=== PATIENT | male | born 1990 | race Caucasian/White ===

== ENCOUNTER 2020-08-15 11:36 | Emergency (ER) | payer OTHER ==
[~2020-08-15] VITALS: Ht 175.3 cm; Wt 71.9 kg
[2020-08-15] MEDS ORDERED: NS 1,000 ML IV ONE (12:15)
[2020-08-15] MEDS ORDERED: ACETAMINOPHEN 500 MG TAB PO ONE (12:15)
[2020-08-15] MEDS ORDERED: ONDANSETRON 4MG/2ML VIAL IV ONE (12:15)
[2020-08-15 12:23] LABS: BASO % 0.2 % (0.0-1.0); EOS % 0.3 % (0.0-3.0); HEMATOCRIT 47.3 % (42.0-52.0); HEMOGLOBIN 16.4 g/dl (13.5-17.5); LYMPH # 0.6 10^3/uL (1.5-5.0); LYMPH % 4.2 % (24.0-44.0); MEAN CORPUSCULAR HEMOGLOBIN 27.9 pg (27.0-33.0); MEAN CORPUSCULAR HGB CONC 34.7 g/dl (32.0-36.5); MEAN CORPUSCULAR VOLUME 80.6 fl (80.0-96.0); MONO # 1.1 10^3/uL (0.0-0.8); MONO % 7.8 % (0.0-5.0); NEUTROPHILS # 11.7 10^3/uL (1.5-8.5); NEUTROPHILS % 87.1 % (36.0-66.0); PLATELET COUNT, AUTOMATED 214 10^3/uL (150-450); RED BLOOD COUNT 5.87 10^6/uL (4.30-6.10); WHITE BLOOD COUNT 13.4 10^3/uL (4.0-10.0)
[2020-08-15] MEDS ORDERED: ROPI2TAB24 PO (12:23)
[2020-08-15 12:30] LABS: BILIRUBIN, URINE MANUAL OBSCURED (NEGATIVE); GLUCOSE, URINE (UA) MANUAL NEGATIVE (NEGATIVE); KETONE, URINE MANUAL OBSCURED mg/dL (NEGATIVE); UROBILINOGEN, URINE MANUAL OBSCURED mg/dl (NORMAL)
[2020-08-15 12:54] LABS: BACTERIA, URINE MOD AMOUNT; HYALINE CAST, URINE NONE SEEN /lpf (0-1); MUCUS, URINE SMALL AMOUNT (NEGATIVE); RBC, URINE TNTC /hpf (0-3); RENAL EPITHELIAL CELLS, URINE SMALL AMOUNT /hpf; SQUAMOUS EPITHELIAL CELL URINE SMALL AMOUNT /hpf (SMALL AMT)
[2020-08-15 12:56] LABS: ALBUMIN 4.6 GM/DL (3.2-5.2); ALT/SGPT 31 U/L (12-78); BILIRUBIN,DIRECT 0.3 MG/DL (0.0-0.2); C REACTIVE PROTEIN QUANTITATIV < 0.30 MG/DL (0.00-0.30); LIPASE 45 U/L (73-393); TOTAL PROTEIN 7.8 GM/DL (6.4-8.2)
[2020-08-15 13:00] LABS: ERYTHROCYTE SEDIMENTATION RATE 1 mm/hr (0-15)
--- NOTE | 2020-08-15 13:47 | REP ---
INDICATION: LLQ/L groin pain, hematuria, r/o stone. COMPARISON: None TECHNIQUE: Noncontrast enhanced stone protocol FINDINGS: The lung bases are clear. Limited evaluation of the solid intra-organs and gallbladder show no gross abnormalities. Limited evaluation of the pancreas, adrenal glands, and right kidney show no abnormalities. There is mild left-sided hydronephrosis and hydroureter with mild periureteral edema. In the distal left ureter there is a 6 mm size calculus responsible for the aforementioned findings. There is no free fluid or free air. The bowel loops and the mesenteries are within normal limits. Bone window technique throughout the exam shows the osseous structures to be within normal limits. IMPRESSION: Distal left ureterolith with resultant findings as described above. <Electronically signed by Fabien Martin > 08/15/20 [id number]
--- NOTE | 2020-08-15 13:50 | REP ---
INDICATION: L testicular pain. COMPARISON: None FINDINGS: The right testicle measures 4 x 1.6 x 2.6 cm and the left measures 3 x 2.1 x 2.9 cm. The testicular parenchymal echo pattern and vascular pattern is within normal limits bilaterally. The right testicular RI is 0.57 on the left is 0.66. There are minimal bilateral hydroceles. There is an incidental 3 mm sized right spermatocele. Incidental bilateral 2 mm sized scrotal pearls are identified. There is no evidence of a varicocele. IMPRESSION: No evidence of torsion or a significant acute abnormality. Findings as described above. <Electronically signed by Fabien Martin > 08/15/20 [id number]
[2020-08-15] MEDS ORDERED: BACT800T5 PO (15:02)
[2020-08-15] MEDS ORDERED: FLOM0.4C39 PO (15:02)
[2020-08-15] MEDS ORDERED: ONDA4TAB6 PO (15:02)
[2020-08-15] MEDS ORDERED: KETO10TAB PO (15:02)
[2020-08-15 15:08] VITALS: BP 126/64
[2020-08-15] MEDS ORDERED: KETOROLAC 30 MG/ML 1ML VIAL IV ONE (15:15)
== END 2020-08-15 15:24 | disposition home or self-care (01) ==
LOC: M ED 11:36
DX: N20.1 Calculus of ureter (principal); N23 Unspecified renal colic; N43.3 Hydrocele, unspecified; N39.0 Urinary tract infection, site not specified; N43.40 Spermatocele of epididymis, unspecified; G25.81 Restless legs syndrome; Z79.899 Other long term (current) drug therapy
CPT/HCPCS: 74176; 76870; 80047; 80076; 81000; 83690; 85025; 85652; 86140; 87086; 87661; 93976; 96361; 96374; 96375; 99284; J1885; J2405

== ENCOUNTER → 2020-08-15 | Outpatient (REF) | payer OTHER ==
[~2020-08-15] MED LIST: BACT800T5 PO; FLOM0.4C39 PO; KETO10TAB PO; ONDA4TAB6 PO; ROPI2TAB24 PO
== END ==
LOC: M LAB REF 17:39
PROVIDERS: ATTEND Physician Assistant Medical
DX: Z11.59 Encounter for screening for other viral diseases (principal)

== ENCOUNTER → 2025-06-01 | Outpatient (CLI) | payer BC, OTHER ==
[~2025-06-01] MED LIST changes: -FLOM0.4C39 PO; +ONDA-282 PO; -ONDA4TAB6 PO; +TAMS-18 PO
== END ==
LOC: M WUC 10:14
PROVIDERS: ATTEND Internal Medicine
DX: J06.9 Acute upper respiratory infection, unspecified (principal); R05.1 Acute cough; J98.4 Other disorders of lung